=== PATIENT | female | born 1995 | race Caucasian/White ===

== ENCOUNTER → 2022-08-22 | Outpatient (CLI) | payer BC ==
[2022-08-23 04:10] LABS: Chol/HDL Ratio 3.34 Ratio; Follicle Stimulating Hormone 3.2 mIU/mL; LDL Cholesterol,Calculated 83.3 mg/dL (0.0-131.0); VLDL Calculation 10.58 mg/dL (5.00-40.00)
== END | disposition home or self-care (01) ==
LOC: LABWHC1 09:23
PROVIDERS: ATTEND Obstetrics & Gynecology
DX: Z01.419 Encounter for gynecological examination (general) (routine) without abnormal findings (principal)
CPT/HCPCS: 36415; 80061; 82397; 83001; 83036; 84144; 84146; 84439; 84443

== ENCOUNTER → 2023-03-08 | Outpatient (CLI) | payer BC | END | disposition home or self-care (01) | LOC: LABWHC1 09:00 | PROVIDERS: ATTEND Obstetrics & Gynecology Reproductive Endocrinology | DX: Z01.812 Encounter for preprocedural laboratory examination (principal) | CPT/HCPCS: 36415; 84443; 86376 ==

== ENCOUNTER → 2023-06-07 | Outpatient (CLI) | payer BC | END | disposition home or self-care (01) | LOC: LABWHC1 16:03 | PROVIDERS: ATTEND Obstetrics & Gynecology Reproductive Endocrinology | DX: Z01.812 Encounter for preprocedural laboratory examination (principal) | CPT/HCPCS: 36415; 86644; 86645 ==

== ENCOUNTER → 2023-11-22 | Outpatient (CLI) | payer BC ==
--- NOTE | 2023-11-28 17:16 | CT ---
EXAMINATION TYPE: CT hand RT wo con DATE OF EXAM: 11/25/2023 COMPARISON: None HISTORY: 28-year-old female S62.511A DISP FX OF PROXIMAL PHALANX OF RIGHT THUM, CHECK HEALING TECHNIQUE: Contiguous axial scanning of the right hand without IV contrast. Coronal and sagittal cruz nstructions performed. CT DLP: 153 mGycm Automated exposure control for dose reduction was used. FINDINGS: There is a comminuted fracture of the base of the fifth metacarpal. Intra-articular extension to both the CMC and fourth-fifth intermetacarpal joint. No significant articular surface incongruity. Fractu re lucency is visualized by areas of partial bony bridging are demonstrated. No other acute or healing fracture is seen. Radiocarpal joint and midcarpal compartment appear intact. IMPRESSION: INCOMPLETE HEALING CHANGE OF THE COMMINUTED INTRA-ARTICULAR FRACTURE AT THE BASE OF THE FIFTH METACAR PAL. AREAS OF PARTIAL BONY BRIDGING ARE NOTED BUT SOME FRACTURE LUCENCY STILL REMAINS WELL.
== END | disposition home or self-care (01) ==
LOC: RADCTMAIN 17:42
PROVIDERS: ATTEND Orthopaedic Surgery Hand Surgery
DX: S62.316A Displaced fracture of base of fifth metacarpal bone, right hand, initial encounter for closed fracture (principal); S62.511A Displaced fracture of proximal phalanx of right thumb, initial encounter for closed fracture; X58.XXXA Exposure to other specified factors, initial encounter

== ENCOUNTER 2024-09-08 16:00 | Inpatient (IN) | payer BC ==
[2024-09-09] MEDS ORDERED: TRANEXAMIC 1,000 MG/100ML-NACL 1,000 MG in EMPTY BAG 1 BAG IV PRN (06:17)
[2024-09-09] MEDS ORDERED: OXYTOCIN 10 UNIT/ML 1 ML VIAL IM PRN (06:17)
[2024-09-09] MEDS ORDERED: METHYLERGONOVINE 0.2 MG/ML 1 ML AMP IM PRN (06:17)
[2024-09-09] MEDS ORDERED: miSOPROStoL 200 MCG TAB RECTAL PRN (06:17)
[2024-09-09] MEDS ORDERED: miSOPROStoL 200 MCG TAB PO PRN (06:17)
[2024-09-09] MEDS ORDERED: CARBOPROST TROMETHAMINE 250 MCG/ML 1 ML AMP IM PRN (06:17)
[2024-09-09] MEDS ORDERED: TERBUTALINE 1 MG/ML VIAL SQ PRN (06:17)
[2024-09-09] MEDS: OXYTOCIN 30 UNITS/500 ML NS 30 UNIT in SALINE 1 500ML.BAG IV SCH (06:32)
[2024-09-09] MEDS: LACTATED RINGERS 1,000 ML IV SCH (06:32)
[2024-09-09 06:52] LABS: Basophils % (A) 0 %; Eosinophils # (A) 0.1 k/uL (0-0.7); Eosinophils % (A) 1 %; HCT 33.3 % (34.0-46.0); HGB 11.1 gm/dL (11.4-16.0); Lymphocytes # (A) 1.5 k/uL (1.0-4.8); Lymphocytes % (A) 23 %; MCH 28.7 pg (25.0-35.0); MCHC 33.3 g/dL (31.0-37.0); MCV 86.5 fL (80.0-100.0); Mean Platelet Volume 6.9; Monocytes # (A) 0.4 k/uL (0-1.0); Monocytes % (A) 6 %; Neutrophils # (A) 4.3 k/uL (1.3-7.7); Neutrophils % (A) 67 %; Platelet Count 314 k/uL (150-450); Poikilocytosis Slight; RBC 3.85 m/uL (3.80-5.40); RDW 13.8 % (11.5-15.5); WBC 6.5 k/uL (3.8-10.6)
--- NOTE | 2024-09-09 08:33 | P.HPOB ---
History of Present Illness H&P Date: 09/09/24 Chief Complaint: induction of labor Ms. Gan is a 29 year old at 39 weeks and 4 days gestation with IVF and EDC of 09/12/2024 by LMP consistent with 1st trimester US who presents for induction of labor. She has undergone surveillance with NSTs for IVF and they have been reassuring. EFW is in the 42%ile based on a 32 week growth US. work-up: blood type B positive, antibody screen negative, rubella immune, VDRL non-reactive, HIV negative, HBsAg negative, HCV Ab non-reactive, gonorrhea negative, chlamydia negative, 1 hour GTT wnl, GBS negative. Past Medical History Additional Past Medical History / Comment(s): hypothyroid History of Any Multi-Drug Resistant Organisms: None Reported Past Surgical History: Adenoidectomy Additional Past Surgical History / Comment(s): tubes in ear Past Anesthesia/Blood Transfusion Reactions: No Reported Reaction Past Psychological History: No Psychological Hx Reported Smoking Status: Never smoker Past Drug Use History: None Reported Medications and Allergies Home Medications Medication Instructions Recorded Confirmed Type Aspirin 81 mg PO DAILY 09/09/24 09/09/24 History Levothyroxine Sodium [Synthroid] 50 mcg PO DAILY 09/09/24 09/09/24 History Vit No.179/Iron/Folic 1 tab PO DAILY 09/09/24 09/09/24 History [ Tablet] Allergies Allergy/AdvReac Type Severity Reaction Status Date / Time Penicillins Allergy Rash/Hives Verified 09/09/24 06:15 Exam Vital Signs Temp Pulse Resp BP 09/09/24 06:14 97.2 F L 102 H 16 129/88 Intake and Output 09/08/24 09/09/24 09/09/24 22:59 06:59 14:59 Other: Weight 73.028 kg Focused physical exam is performed. This is a healthy-appearing in no apparent distress. Breathing is non-labored. Abdomen is gravid and non-tender. Cervical exam is 3 cm, 70% effacement, -2fetal station. AROM is undertaken with clear fluid noted. Extremities non-tender and non-edematous. heart tones are Category I and tocometer is graphing contractions every 2-4 minutes. Results Result Diagrams: 09/09/24 06:39 Abnormal Lab Results - Last 24 Hours (Table) 09/09/24 Range/Units 06:39 Hgb 11.1 L (11.4-16.0) gm/dL Hct 33.3 L (34.0-46.0) % Assessment and Plan Assessment: 29 year old at 39 weeks and 4 days gestation presenting for induction of labor Plan: Admit, clear liquid diet, pitocin per protocol, epidural prn, continuous EFM and tocometer.
[2024-09-09] MEDS ORDERED: fentaNYL (PF) 50 MCG/ML 5 ML AMP ONE (10:43)
[2024-09-09] MEDS ORDERED: SODIUM CHLORIDE 0.9% 250 ML BAG ONE (10:43)
[2024-09-09] MEDS ORDERED: ROPIVACAINE 5 MG/ML 30 ML VIAL ONE (10:43)
[2024-09-09] MEDS ORDERED: diphenhydrAMINE 25 MG CAP PO PRN (17:49)
[2024-09-09] MEDS ORDERED: diphenhydrAMINE 50 MG/ML 1 ML VIAL IVP PRN ×2 (17:49)
[2024-09-09] MEDS ORDERED: HYDROCORTISONE 2.5% RECTAL CREAM 30 GM TUBE RECTAL PRN (17:49)
[2024-09-09] MEDS ORDERED: ZOLPIDEM 5 MG TAB PO PRN (17:49)
[2024-09-09] MEDS ORDERED: BENZOCAINE/MENTHOL SPRAY 1 GM/SPRAY AEROSOL TOPICAL PRN (17:49)
[2024-09-09] MEDS ORDERED: diphenhydrAMINE 50 MG CAP PO PRN (17:49)
[2024-09-09] MEDS ORDERED: SIMETHICONE 80 MG CHEWABLE PO PRN (17:49)
[2024-09-09] MEDS ORDERED: LANOLIN CREAM 1 GM TUBE TOPICAL PRN (17:49)
--- NOTE | 2024-09-09 17:55 | P.PROBDLV ---
Vaginal Delivery Note - . Vaginal Delivery Note: DATE OF SERVICE: 09/09/24 PROCEDURE: Normal Vaginal Delivery ATTENDING: Dr. Tiffanie Zhong MD ESTIMATED BLOOD LOSS: 200 mL FINDINGS: VFI, Apgars 9. Weight pending. PROCEDURE: Ms. Gan is a 29 year old at 39 weeks and 4 days gestation presenting to labor and delivery for induction of labor. For further details, please review the admitting H&P. Pitocin was titrated per protocol. AROM was undertaken at 811 revealing clear amniotic fluid. The patient received epidural anesthesia per her request. The patient was completely dilated at 1608. She pushed effectively with Category I heart tones. A viable female infant was delivered at 1709. The was placed on the maternal abdomen and bulb suctioned. The was noted to be spontaneously crying. Cord was clamped and cut after a 60-second delay. The infant was handed off to the pediatric team. Placenta was delivered manually and piece-bonner after an umbilical cord avulsion. The placenta was inspected carefully and felt to be complete. Oxytocin was started to facilitate uterine tone. Uterine fundus was found to be firm and below the umbilicus upon fundal massage. Thorough examination of the cervix, vagina, periurethral area, and perineum revealed a third degree perineal laceration. The perineum was infiltrated with lidocaine and repaired with 3-0 Vicryl and 2-0 Vicryl in the standard fashion. The patient is stable and allowed to begin the bonding process. An pelvic US will be obtained to ensure complete removal of the placenta. A dose of IVPB Clindamycin will be given for third degree perineal laceration repair and manual removal of placenta prophylaxis.
[2024-09-09] MEDS: IBUPROFEN 800 MG TAB PO SCH (18:09)
[2024-09-09] MEDS: LIDOCAINE 0.5% (PF) 5 MG/ML (50 ML SDV) SQ PRN (18:42)
[2024-09-09] MEDS: CLINDAMYCIN 900 MG in DEXTROSE 5% IN WATER 50 ML IVPB STA (18:46)
--- NOTE | 2024-09-09 20:10 | US ---
EXAMINATION TYPE: US pelvic complete DATE OF EXAM: 09/09/2024 COMPARISON: NONE CLINICAL INDICATION: Female, 29 years old with history of rule out retained placenta; rule out retain ed placenta, patient states the placenta was delivered in pieces. Gave around 4pm TECHNIQUE: Transabdominal (TA). Transabdominal grayscale sonographic images of the pelvis were acquired. Transvaginal sonographic im ages were medically necessary to better assess the following anatomy: Endometrium Doppler imaging: Not performed. FINDINGS: EXAM MEASUREMENTS: Uterus: 18.0 x 9.0 x 12.5 cm Endometrial Stripe: cm Right Ovary: Not visualized due to bowel gas and uterus size Left Ovary: Not visualized due to bowel gas and uterus size 1. Uterus: Anteverted There is a 2.7 x 2.4cm hypoechoic area within the CONY/cervix 2. Endometrium: 0.6cm within the fundus, 1.2cm at the CONY. fluid seen. ? heterogenicity 3. Right Ovary: Obscured by overlying bowel gas 4. Left Ovary: Obscured by overlying bowel gas Spectral, color and waveform doppler imaging shows good arterial and venous flow within the ovaries ; there is no evidence for ovarian torsion. 5. Bilateral Adnexa: Obscured by overlying bowel gas 6. Posterior cul-de-sac: wnl IMPRESSION: Heterogenous bulky uterus with lower uterine segment low echogenicity area possibly representing bloo d products less likely retained priors given lack of color Doppler flow. Consider short-term follow-u p. [facility], , 09/09/2024 8:08 PM
[2024-09-09] MEDS: SENNOSIDES-DOCUSATE SODIUM 1 EACH TAB PO SCH (23:12)
[2024-09-10] MEDS: ACETAMINOPHEN TAB 500 MG TAB PO SCH (00:11)
--- NOTE | 2024-09-10 08:36 | P.DS ---
Providers Date of admission: 09/09/24 05:53 Expected date of discharge: 09/10/24 Attending physician: Tiffanie Zhong MD Primary care physician: Stated None Hospital Course: Ms. Gan is a 29 year old now PPD#1 s/p after induction of labor. Her delivery was complicated by a retained placenta and a third degree perineal laceration. Because the placenta was manually removed piece-bonner, a pelvic US was obtained after the patient's recovery which was negative for any retained products. The patient is doing well this morning and had no acute events overnight. She has no complaints this morning. She reports minimal lo gwen, passing flatus, voiding without difficulty, ambulating, and eating/drinking without nausea or vomiting. Infant doing well at bedside. She denies chest pain, shortness of breathing, fevers, or chills overnight. She denies pain or swelling in the legs. restrictions are reviewed with the patient including pelvic rest for 6 weeks. The patient is encouraged to call the office if she experiences any heavy bleeding, foul-smelling discharge, breast complaints, or any if she has any other concerns. She will follow up in the office with in 6 weeks for exam. She will go home with stool softeners, she plans to use OTC Motrin and Tylenol as needed. All questions are answered. Assessment: 29 year old now PPD#1 s/p complicated by retained placenta and third degree perineal laceration Patient Condition at Discharge: Good Plan - Discharge Summary New Discharge Prescriptions: New Docusate [Colace] 100 mg PO BID PRN #60 capsule PRN Reason: Constipation No Action Vit No.179/Iron/Folic [ Tablet] 1 tab PO DAILY Levothyroxine Sodium [Synthroid] 50 mcg PO DAILY Aspirin 81 mg PO DAILY Discharge Medication List Aspirin 81 mg PO DAILY 09/09/24 [History] Levothyroxine Sodium [Synthroid] 50 mcg PO DAILY 09/09/24 [History] Vit No.179/Iron/Folic [ Tablet] 1 tab PO DAILY 09/09/24 [History] Docusate [Colace] 100 mg PO BID PRN #60 capsule 09/10/24 [Rx] Follow up Appointment(s)/Referral(s): Tiffanie Zhong MD [STAFF PHYSICIAN] - 10/21/24 9:30 am Activity/Diet/Wound Care/Special Instructions: Instructions 1. Do not begin any exercise program for 3 weeks. 2. Do not resume sexual relations for 6 weeks or longer if uncomfortable. 3. You may take tub baths or showers at any time. 4. You may use tampons if desired after 6 weeks. 5. Keep any areas repaired with stitches clean and dry. 6. If you are not nursing, wear a good fitting, supportive bra during the day and limit fluid intake for at least 1 week to prevent breast engorgement. 7. Call the office, , within the next week to make appointment for your 6 week checkup if it has not already been made. 8. Report any of the following occurrences to the doctor promptly: a. Heavy, excessive bleeding b. Chills, fever c. Burning or frequency of urination d. Pain or redness and breasts if nursing e. Increasing pain or swelling of vulva (stitches). In addition to the above instructions, the following additional should be followed: 1. No heavy lifting or straining (exercising) until after 6 week checkup. 2. Keep abdominal incision clean and dry: You may wear a dressing if more comfortable. 3. Make office appointment for 2 weeks after delivery date. Discharge Disposition: HOME SELF-CARE
[2024-09-10 09:26] LABS: Basophils % (A) 0 %; Eosinophils # (A) 0.1 k/uL (0-0.7); Eosinophils % (A) 1 %; HCT 27.9 % (34.0-46.0); Lymphocytes # (A) 1.4 k/uL (1.0-4.8); Lymphocytes % (A) 18 %; MCH 29.5 pg (25.0-35.0); MCHC 34.1 g/dL (31.0-37.0); MCV 86.4 fL (80.0-100.0); Mean Platelet Volume 7.7; Monocytes # (A) 0.5 k/uL (0-1.0); Monocytes % (A) 6 %; Neutrophils # (A) 5.9 k/uL (1.3-7.7); Neutrophils % (A) 73 %; Platelet Count 270 k/uL (150-450); Poikilocytosis Slight; RBC 3.23 m/uL (3.80-5.40); RDW 14.5 % (11.5-15.5)
[2024-09-10 09:29] LABS: HGB 9.5 gm/dL (11.4-16.0)
[2024-09-10] MEDS: LEVOTHYROXINE 50 MCG TAB PO SCH (11:09)
[2024-09-10 13:37] VITALS: RESP 16
[2024-09-10 15:17] VITALS: BP 127/81; PULSE 89; TEMP 98
[2024-09-11] MEDS ORDERED: LEVOTHYROXINE 50 MCG TAB PO SCH (06:30)
== END 2024-09-10 19:05 | disposition home or self-care (01) | DRG 768 ==
LOC: 4FBP 09-09 05:53
PROVIDERS: ADMIT Obstetrics & Gynecology; ATTEND Obstetrics & Gynecology
PROC: 3E033VJ Introduction of Other Hormone into Peripheral Vein, Percutaneous Approach (ICD-10-PCS; principal; 2024-09-09)
PROC: 0DQR0ZZ Repair Anal Sphincter, Open Approach (ICD-10-PCS; principal; 2024-09-09)
PROC: 10E0XZZ Delivery of Products of Conception, External Approach (ICD-10-PCS; principal; 2024-09-09)
PROC: 10907ZC Drainage of Amniotic Fluid, Therapeutic from Products of Conception, Via Natural or Artificial Opening (ICD-10-PCS; principal; 2024-09-09)
DX: O99.284 Endocrine, nutritional and metabolic diseases complicating childbirth (principal); E03.9 Hypothyroidism, unspecified; O69.89X0 Labor and delivery complicated by other cord complications, not applicable or unspecified; O70.20 Third degree perineal laceration during delivery, unspecified; Z88.0 Allergy status to penicillin; Z79.890 Hormone replacement therapy; Z79.82 Long term (current) use of aspirin; Z3A.39 39 weeks gestation of pregnancy; Z37.0 Single live birth
CPT/HCPCS: 76856; 85025; 86850; 86900; 86901